=== PATIENT | male | born 1955 | race Caucasian/White ===

== ENCOUNTER 2019-01-18 11:42 | Inpatient (IN) | payer OTHER, SELFPAY ==
[2019-01-18] VITALS (11 sets, daily range): BP systolic 127–149; BP diastolic 65–75; PULSE 88–97; RESP 16–28; TEMP 37.1–38.2; O2SAT 87–96; BMI 23.7; BMI 23.0
--- NOTE | 2019-01-18 12:26 | RAD_ITS ---
STUDY: X-RAY CHEST REASON FOR EXAM: Male, 63 years old. Cough, fever and chest congestion. TECHNIQUE: PA and lateral views of the chest. COMPARISON: None. FINDINGS: Airspace disease in the left upper and left lower lobes. Minimal increased markings at the right lung base. Findings include with bilateral patchy pneumonia is worse on the left side. There is no demonstrated pleural abnormality. Normal size heart. Normal mediastinum and sophia. Normal visualized pulmonary arteries. Normal visualized aortic arch and descending thoracic aorta. Normal visualized thoracic spine. Normal visualized ribs, clavicles, and shoulders. There is no demonstrated abnormality of the visualized soft tissue structures of the upper abdomen. RAD/Chest PA and Lateral IMPRESSION: Bilateral patchy pneumonia is worse on the left side. Electronically Signed: Basim Mcqueen, at 12:55 EDT , Service support ,
--- NOTE | 2019-01-18 12:29 | ED.VISSUMM ---
- ER Visit Summary Date of Service: 01/18/19 Chief Complaint: Sinusitis, not improving, cough History of Present Illness: The patient is a 63 M who presents with a cough and sinus infection. He has had a sinus infection for 10 days. He saw his PCP who ordered him Augmentin 5 days ago but he is not getting any better. He feels worse now. His temperature is been fluctuating between 96 and 101 Fahrenheit. He has been also taking Claritin and Flonase along with the Augmentin. His cough is productive. He still has the nasal congestion. He feels weak and tired as well. Physical Examination: Vital signs reviewed. HEENT exam shows swollen turbinates and congestion bilaterally. He is a non-erythematous throat. Neck is supple. Heart is regular rate and rhythm without murmurs. Lungs have a wheeze in the left lower lung base. Abdomen soft and nontender. Extremity have no edema. Skin exam reveals no rashes. Neurologic exam normal. Test Results: CBC shows a normal white blood cell count. Sodium 135, glucose 110. Chest x-ray reveals bilateral infiltrates, left greater than right Emergency Department Course and Treatment: Patient is resting comfortably. He is 95% on room air. He has a normal white blood cell count is afebrile at this time. I feel he can be treated as an outpatient. I will give him doxycycline to take instead of the Augmentin. I will give an albuterol inhaler. He will need to call his PCP for follow-up Treatment Plan: [] Disposition: Discharge Impression: Community-acquired pneumonia, bilateral Sinusitis This note was generated with [employer] dictation software. It may contain incorrect words, spelling, and punctuation that were not noted in review of the chart prior to signing ED Disposition - Plan for ED Patient: Referrals: Comfort Walker MD [Primary Care Provider] -
[2019-01-18 12:42] LABS: Absolute Lymphocyte Count 0.93 X10^3/uL (0.83-4.51); Basophil# 0.01 X10^3/uL; Basophil% 0.1 % (0-1); Eosinophil# 0.05 X10^3/uL; Eosinophils% 0.6 % (0-5); Hematocrit 41.3 % (40-54); Hemoglobin 13.8 g/dL (13.0-16.5); Lymphocyte # 0.93 X10^3/ul (4.0); Lymphocyte % 10.6 % (19-41); Mean Corp Hgb Conc 33.4 g/dL (32-36); Mean Corpuscular Hgb 30.9 pg (27.0-32.0); Mean Corpuscular Volume 92.6 fL (80-94); Mean Platelet Vol. 9.4 fl (6.2-12.0); Monocyte# 0.71 X10^3/uL; Monocyte% 8.1 % (0-10); NRBC Flagged by Analyzer 0 % (0-5); Neutrophil # 7.03 X10^3/uL (2.7-7.7); Neutrophil % 80.3 % (47-70); Platelet Count 290 K/mm3 (150-450); RBC Distribution Width CV 12.1 % (11.6-14.6); Red Blood Count 4.46 M/mm3 (4.6-6.2); White Blood Count 8.8 K/mm3 (4.4-11.0)
[2019-01-18 12:50] LABS: Anion Gap 6 (5-15); BUN 11 mg/dL (7-18); BUN/Creat Ratio 13.4 RATIO (10-20); Calcium,Total 8.4 mg/dL (8.5-10.1); Chloride 100 mmol/L (98-107); Creatinine, Serum 0.82 mg/dL (0.70-1.30); EST Glomerular Filtration Rate 101 mL/min (>60); Est Glom Filt Rate - Afr Amer 122 mL/min (>60); Estimated Creatinine Clearance 99.48 ml/min; Glucose 110 mg/dL (74-106); Potassium 3.9 mmol/L (3.5-5.1); Sodium Level 135 mmol/L (136-145)
--- NOTE | 2019-01-18 13:26 | ED.DEP ---
ED Disposition - Plan for ED Patient: Disposition: Home or Assisted Living Instructions: PNEUMONIA (Adult) Prescriptions: Doxycycline 100 mg PO BID #20 cap Prescription Printed Albuterol Inhaler [Ventolin Hfa] 1 - 2 puff INHALATION Q4H PRN PRN #1 inhaler PRN Reason: Wheezing Prescription Printed Referrals: Comfort Walker MD [Primary Care Provider] -
[2019-01-18] MEDS: Albuterol 2.5 MG/3 ML VIAL.NEB. INHALATION (15:21)
--- NOTE | 2019-01-18 15:47 | NURSING ---
MED SURG CAP PAINTSIL
--- NOTE | 2019-01-18 16:01 | HP.PCM_ITS ---
Problem List (1) CAP (community acquired pneumonia) Status: Acute (2) Sinusitis Status: Acute Qualifiers: Chronicity: unspecified History of Present Illness Date of Admission: 01/18/19 Chief Complaint: Fever, cough - 5 days The patient is a 63 year old M with no significant past medical history who comes in with sinus infection ongoing for 10 days for which his primary care doctor prescribed Augmentin 5 days ago. Patient started having fever with cough about the same time as he started his Augmentin. His fevers were as high as 101.8F. His cough is productive of greenish sputum. He has nasal congestion, shortness of breath at rest and on exertion. He denied any dizziness or sore throat or chest pain or diarrhea or nausea or vomiting. His admitting vitals showed of 98.8F, heart rate 90, blood pressure 128/65, respiratory rate of 18, SPO2 was 94% on room air. His white cell count was 8.8, hemoglobin 13.8, platelet count 290, BMP was unremarkable except for sodium of 135. Chest x-ray on admission showed bilateral patchy pneumonia, worse on the left Past Medical History Allergies No Known Allergies Allergy (Verified 01/18/19 11:44) Home Medications: Ambulatory Orders Medication Instructions Recorded Amoxicillin/Potassium Clav 1 tab PO BID 01/18/19 [Amox-Clav 875-125 mg Tablet] Fluticasone 0.05% [Flonase Nasal 1 - 2 spray NASAL DAILY 01/18/19 [place]] Loratadine [Claritin] 10 mg PO DAILY 01/18/19 Lutein 20 mg PO DAILY 01/18/19 [place] Fruit [Saw [place]] 450 mg PO DAILY 01/18/19 Turmeric Root Extract [Turmeric] 500 mg PO DAILY 01/18/19 Surgical History: - - s/p cysts removal from his back Psychiatric History: No pertinent psych hx Lives: Spouse/ Significant Other Smoking Status: Never smoker Tobacco Use: Non-smoker Alcohol: None Drugs: None - *Family History Paternal History Items: Heart Disease - s/p pacemaker Maternal History Items: Cancer - Non-hodgkins lymphoma, dementia Review of Systems Constitutional: Reports: Chills, Fever, Malaise, Weakness, Fatigue. Denies: Anorexia, Night Sweats, Weight Change Eyes: Denies: Blurred vision, Cataracts, Conjunctivae Inflammation, Pain, Redness, Vision Change HEENT: Denies: Difficulty Hearing, Difficulty Swallowing, Head Aches, Hearing Changes, Nasal bleeding, Sinus Congestion, Sinus Drainage, Sore Throat Cardiovascular: Denies: Chest Pain, Claudication, Orthopnea, Palpitations, Paroxysmal Noc. Dyspnea Respiratory: Reports: Cough, Hemoptysis, Shortness of Breath, Shortness of gabo th at rest, Shortness of breath upon exertion, Sputum production - greeenish Gastrointestinal: Denies: Abdominal Pain, Hematemesis, Hematochezia, Nausea, Vomiting Genitourinary: Denies: Dysuria, Frequency, Incontinence, Nocturia, Retention Musculoskeletal: Denies: Joint Pain, Joint Tenderness Skin: Denies: Pruritis, Rash, Wounds Neurological: Denies: Difficulty swallowing, Focal weakness, Numbness, Tingling Psychiatric: Denies: Anxiety, Depression, Homicidal Ideations, Suicidal Ideations Endocrine: Denies: Change in Body Habitus, Heat/ Cold Intolerance Hematologic/ Lymphatic: Denies: Easy Bruising, Easy Bleeding VTE Information - Inpt Only VTE Present on Admission: No VTE Pharm Prophylaxis ordered?: Yes Patient Problems: Active and Suspected Problems CAP (community acquired pneumonia) (Acute) Sinusitis (Acute) - Physical Exam General: Alert, Oriented x3, Cooperative, - - in mild distress, on 2L oxygen HEENT: Atraumatic, PERRLA, EOMI, Normocephalic Oral: Moist Mucosa Neck: Supple Lungs: Diminished - worse on the left lower lobe Cardiovascular: Regular rate, Regular Rhythm, Normal S1, Normal S2, Tachycardic Abdomen: Bowel Sounds Present, Soft, Non Tender, Non-Distended, No Hepato- splenomegaly Extremities: No edema Skin: No rashes Musculoskeletal: No Tenderness to Palpation of Joints or Extremities Lymphatic: No Cervical, Supraclavicular, or Inguinal Adenopathy Neurological: Cranial nerves II-XII grossly intact, Neuro grossly intact Psych/Mental Status: Normal Affect, Appropriate Vital Signs Temp Pulse Resp BP Pulse Ox 100.2 F H 88 20 H 127/70 H 89 01/18/19 15:17 01/18/19 15:21 01/18/19 15:21 01/18/19 15:17 01/18/19 15:17 Oxygen Delivery Method Room Air Weight: 77.111 kg Body Mass Index (BMI) 23.7 Laboratory Tests Past 24 Hrs 01/18/19 01/18/19 12:25 12:25 WBC 8.8 RBC 4.46 L Hgb 13.8 Hct 41.3 MCV 92.6 MCH 30.9 MCHC 33.4 RDW Std Deviation 41.0 RDW Coeff of David 12.1 Plt Count 290 MPV 9.4 Immature Gran % (Auto) 0.300 Neut % (Auto) 80.3 H Lymph % (Auto) 10.6 L [place] % (Auto) 8.1 Eos % (Auto) 0.6 Baso % (Auto) 0.1 Absolute Neuts (auto) 7.0 Absolute Lymphs (auto) 0.93 Nucleated RBC % 0 Sodium 135 L Potassium 3.9 Chloride 100 Carbon Dioxide 29.0 Anion Gap 6 BUN 11 Creatinine 0.82 Estim Creat Clear Calc 99.48 Est GFR (MDRD) Af Amer 122 Est GFR (MDRD) Non-Af 101 BUN/Creatinine Ratio 13.4 Glucose 110 H Calcium 8.4 L Assessment/Plan All Active Problems CAP (community acquired pneumonia) (Acute) Sinusitis (Acute) 63 year old M with no significant past medical history who was recently diagnosed with a sinus infection ongoing for 10 days started on Augmentin 5 days ago but comes in with fever and cough of 5 days duration. 1. Acute respiratory insufficiency secondary to CAP, patient is not on oxygen at home, Currently on 2 L of oxygen Will continue on breathing treatments, encourage use of incentive spirometer, no for SPO2 more than 94% 2. CAP, likely secondary to suspected gram-positive organisms, recently been on Augmentin Started on IV Levaquin; will continue with such will rule out viral component with respiratory panel 3. Acute sinusitis, patient complains of recurrent symptoms, recently started on Augmentin but had persistent fever and cough Will get CT of the sinuses 3. Hyponatremia, likely related to dehydration, will continue on IVF, repeat blood work in am 4. DVT PPx - Heparin SC Code Visit Inpatient E&M: 67888 Init Hosp L2
[2019-01-18] MEDS: levoFLOXacin IV 750 MG/150 ML BAG 100 MG IV (16:26)
--- NOTE | 2019-01-18 16:50 | CT_ITS ---
STUDY: CT MAXILLOFACIAL SINUSES REASON FOR EXAM: Male, 63 years old. Sinusitis RADIATION DOSAGE (If Supplied By Facility): CTDIvol = ( 29.38 ) mGy, DLP = ( 437.27 ) mGycm TECHNIQUE: The patient was scanned in a multi detector CT scanner. High resolution axial imaging was performed without the administration of intravenous contrast material. Sagittal and coronal images were reconstructed. Individualized dose optimization techniques were used for this CT. COMPARISON: None. FINDINGS: FRONTAL SINUSES: Mild mucosal thickening. ETHMOIDAL SINUSES: Mild mucosal thickening. MAXILLARY SINUSES: Minimal mucosal thickening bilaterally. Possible small retention cyst in the right maxillary sinus. SPHENOIDAL SINUSES: Normal aeration, without mucosal inflammatory disease. There is patency of the bilateral maxillary infundibuli with normal uncinate processes, ethmoid bullae, and hiatus semilunaris. Normal bilateral middle turbinates. Normal bilateral inferior turbinates. Normal midline nasal septum. There is patency of the bilateral nasal airways. The visualized osseous structures are normal. The visualized bilateral orbital contents are normal. CT/Sinus/Facial Bone IMPRESSION: Mild paranasal sinus disease. Electronically Signed: Fredy Malik DO at 20:41 EDT Tel [phone], Service support ,
[2019-01-18] MEDS: 0.9% Normal Saline 1,000 ML 75 ML IV (18:32)
[2019-01-18 18:35] LABS: AST(SGOT) 32 U/L (15-37); Alanine Aminotransfer ALT/SGPT 29 U/L (16-61); Albumin, Serum 3.2 g/dL (3.2-5.0); Alkaline Phosphatase 48 U/L (45-117); Bilirubin, Direct 0.29 mg/dL (0.00-0.30); Globulin 3.9 g/dL (2.2-4.2); Protein, Total 7.1 g/dL (6.4-8.2)
[2019-01-18] MEDS: Acetaminophen 325 MG Tablet 650 MG PO (20:44)
[2019-01-18] MEDS: guaiFENesin 1,200 MG Tablet 1200 MG PO (21:50)
[2019-01-18] MEDS: Heparin Injection (Vial) 5,000 UNIT/ML VIAL 5000 UNIT SC (21:50)
[2019-01-19 02:06] VITALS: BP 125/65; PULSE 76; RESP 18; TEMP 36.8; O2SAT 94
[2019-01-19] MEDS: 0.9% Normal Saline 1,000 ML 75 ML IV (02:10)
[2019-01-19] MEDS: Heparin Injection (Vial) 5,000 UNIT/ML VIAL 5000 UNIT SC (05:34)
[2019-01-19 06:18] LABS: Basophil# 0.02 X10^3/uL; Basophil% 0.2 % (0-1); Eosinophil# 0.04 X10^3/uL; Eosinophils% 0.5 % (0-5); Hematocrit 40.2 % (40-54); Hemoglobin 13.5 g/dL (13.0-16.5); Lymphocyte % 11.4 % (19-41); Mean Corp Hgb Conc 33.6 g/dL (32-36); Mean Corpuscular Hgb 31.7 pg (27.0-32.0); Mean Corpuscular Volume 94.4 fL (80-94); Mean Platelet Vol. 9.6 fl (6.2-12.0); Monocyte# 0.67 X10^3/uL; Monocyte% 7.6 % (0-10); NRBC Flagged by Analyzer 0 % (0-5); Neutrophil # 6.99 X10^3/uL (2.7-7.7); Neutrophil % 79.6 % (47-70); Platelet Count 283 K/mm3 (150-450); RBC Distribution Width SD 42.1 fl (35.1-43.9); Red Blood Count 4.26 M/mm3 (4.6-6.2); White Blood Count 8.8 K/mm3 (4.4-11.0)
[2019-01-19 06:43] LABS: ALB/GLOB Ratio 0.7 RATIO (0.9-2.4); AST(SGOT) 28 U/L (15-37); Alanine Aminotransfer ALT/SGPT 27 U/L (16-61); Albumin, Serum 2.8 g/dL (3.2-5.0); Alkaline Phosphatase 45 U/L (45-117); Anion Gap 6 (5-15); BUN 10 mg/dL (7-18); BUN/Creat Ratio 12.3 RATIO (10-20); Chloride 105 mmol/L (98-107); Creatinine, Serum 0.82 mg/dL (0.70-1.30); EST Glomerular Filtration Rate 102 mL/min (>60); Est Glom Filt Rate - Afr Amer 123 mL/min (>60); Estimated Creatinine Clearance 96.44 ml/min; Globulin 3.8 g/dL (2.2-4.2); Glucose 110 mg/dL (74-106); Protein, Total 6.6 g/dL (6.4-8.2); Sodium Level 138 mmol/L (136-145)
--- NOTE | 2019-01-19 08:15 | DCINST_ITS ---
- Discharge Diagnoses Current Active Problems: Current Active and Chronic Problems CAP (community acquired pneumonia) (Acute) Sinusitis (Acute) You will use the following diet at home:: No restrictions Your food should be the consistency of: Regular Discharge Activity: Return to Normal Activity - ease back into routine., - - confer with primary care physician if you well enough to go to your conference in [place], [place]. Call your doctor if you observe: Fever of 101 or Higher, Shortness of breath Instructions: PNEUMONIA (Adult) Allergies/Adverse Reactions: Allergies No Known Allergies Allergy (Verified 01/18/19 11:44) Medications to take at Discharge Fluticasone 0.05% [Flonase Nasal [place]] 1 - 2 spray NASAL DAILY 01/18/19 Loratadine [Claritin] 10 mg PO DAILY 01/18/19 Lutein 20 mg PO DAILY 01/18/19 Saw [place] Fruit [Saw [place]] 450 mg PO DAILY 01/18/19 Turmeric Root Extract [Turmeric] 500 mg PO DAILY 01/18/19 Guaifenesin [Mucinex] 1,200 mg PO BID #14 tab 01/19/19 levoFLOXacin tablet [Levaquin tablet] 750 mg PO DAILY #6 tab 01/19/19 The following prescriptions were given: levoFLOXacin tablet [Levaquin tablet] 750 mg PO DAILY #6 tab Transmission Status: Pending to [facility] Guaifenesin [Mucinex] 1,200 mg PO BID #14 tab Transmission Status: Pending to [facility] Primary Care Physician: Comfort Walker MD [Primary Care Provider] - Within 1 Week Test Results: Test results from this visit will be discussed in further detail at your follow- up appointment, if applicable. Proposed Discharge Date: 01/19/19
--- NOTE | 2019-01-19 08:17 | DS.PCM_ITS ---
Discharge Date and Diagnosis - Problem List Patient Problems: Active and Suspected Problems Pneumococcal pneumonia (Acute) CAP (community acquired pneumonia) (Acute) Sinusitis (Acute) Date of Admission: 01/18/19 Date of Discharge: 01/19/19 - Primary Discharge Diagnosis Active and Suspected Problems CAP (community acquired pneumonia) (Acute) Sinusitis (Acute) Hospital Course and Treatment Imaging Results: Clinical Impression(s) from Imaging Studies Chest X-Ray 01/18/19 12:26 IMPRESSION: Bilateral patchy pneumonia is worse on the left side. Electronically Signed: Basim Mcqueen, at 12:55 EDT , Service support , Facial/Sinus 01/18/19 16:50 IMPRESSION: Mild paranasal sinus disease. Electronically Signed: Fredy Malik DO at 20:41 EDT Tel [phone], Service support , Operations: None Procedures: None Summary of Care Provided: The patient is a 63 year old Sarah Mendoza with 5 days of fever and a cough. Had been prescribed Augmentin as well as Flonase through his primary care physician but was still feeling sick having fevers as high as 101.8 Fahrenheit. Patient was having productive phlegm as well. Had a chest x-ray performed in the emergency room that showed a left lower lobe infiltrate. Patient was started on levofloxacin. Today, patient is feeling much better. Patient had a respiratory panel that was positive for rhinovirus and patient also had negative urinary antigens for Streptococcus and Legionella. Patient will be discharged with levofloxacin to complete a 7-day course of antibiotics plus patient will be prescribed Mucinex. Patient was asking about his sinusitis and I did advised him to use Flonase. Unbeknownst to me at that time, patient was already prescribed Flonase. Recommended that he continue with that for the next several weeks and if he does not have any improvement then to potentially see the ENT for an opinion. I explained the patient that any kind of surgical intervention for chronic sinusitis is complete last resort. Patient states that he is supposed to go to [facility] next week for conference. Patient if he is requiring oxygen then that would really need to be canceled but if not, I would recommend him follow-up with his primary care physician within the week to make sure that he is better enough so that he can go. Patient was admitted to but improved much faster than initially anticipated. [] Patient Problems: Active and Suspected Problems Pneumococcal pneumonia (Acute) CAP (community acquired pneumonia) (Acute) Sinusitis (Acute) - Physical Exam General: Alert, No apparent distress HEENT: Atraumatic, Normocephalic Oral: Moist Mucosa, No Gingival or Mucosal Lesions/ Ulcerations Neck: No Nodes, Thyroid Normal Size and Texture Lungs: Normal air movement, - - Crackles left lower lobe Cardiovascular: Regular rate, Regular Rhythm, Normal S1, Normal S2 Abdomen: Bowel Sounds Present, Soft, Non Tender, Non-Distended Extremities: No edema, No Calf Tenderness Psych/Mental Status: Normal Affect, Appropriate Vital Signs Temp Pulse Resp BP Pulse Ox 36.8 C 76 18 125/65 H 94 01/19/19 02:06 01/19/19 02:06 01/19/19 02:06 01/19/19 02:06 01/19/19 02:06 Oxygen Flow Rate (L/min) 2 Oxygen Delivery Method Nasal Cannula Weight: 74.5 kg Body Mass Index (BMI) 23.0 Intake and Output for Last 24 Hours 01/17/19 01/18/19 01/19/19 23:59 23:59 23:59 Intake Total 150 / 1350 2572.5 / 2572.5 Balance 150 / 1350 2572.5 / 2572.5 Microbiology Past 72 Hours 01/18/19 17:10 Respiratory Panel (PCR) - Final Mucosa - Nose Rhinovirus 01/18/19 20:30 Streptococcus pneumoniae Antigen (M - Final Urine, Clean Catch 01/18/19 20:30 Legionella Antigen - Final Urine, Clean Catch Laboratory Tests Past 24 Hrs 01/18/19 01/18/19 01/18/19 12:25 12:25 12:25 WBC 8.8 RBC 4.46 L Hgb 13.8 Hct 41.3 MCV 92.6 MCH 30.9 MCHC 33.4 RDW Std Deviation 41.0 RDW Coeff of David 12.1 Plt Count 290 MPV 9.4 Immature Gran % (Auto) 0.300 Neut % (Auto) 80.3 H Lymph % (Auto) 10.6 L [place] % (Auto) 8.1 Eos % (Auto) 0.6 Baso % (Auto) 0.1 Absolute Neuts (auto) 7.0 Absolute Lymphs (auto) 0.93 Nucleated RBC % 0 Sodium 135 L Potassium 3.9 Chloride 100 Carbon Dioxide 29.0 Anion Gap 6 BUN 11 Creatinine 0.82 Estim Creat Clear Calc 99.48 Est GFR (MDRD) Af Amer 122 Est GFR (MDRD) Non-Af 101 BUN/Creatinine Ratio 13.4 Glucose 110 H Calcium 8.4 L Total Bilirubin 1.30 H Direct Bilirubin 0.29 AST 32 ALT 29 Alkaline Phosphatase 48 Total Protein 7.1 Albumin 3.2 Globulin 3.9 Albumin/Globulin Ratio 01/19/19 01/19/19 05:54 05:54 WBC 8.8 RBC 4.26 L Hgb 13.5 Hct 40.2 MCV 94.4 H MCH 31.7 MCHC 33.6 RDW Std Deviation 42.1 RDW Coeff of David 12.0 Plt Count 283 MPV 9.6 Immature Gran % (Auto) 0.700 Neut % (Auto) 79.6 H Lymph % (Auto) 11.4 L [place] % (Auto) 7.6 Eos % (Auto) 0.5 Baso % (Auto) 0.2 Absolute Neuts (auto) 7.0 Absolute Lymphs (auto) 1.00 Nucleated RBC % 0 Sodium 138 Potassium 4.0 Chloride 105 Carbon Dioxide 27.0 Anion Gap 6 BUN 10 Creatinine 0.82 Estim Creat Clear Calc 96.44 Est GFR (MDRD) Af Amer 123 Est GFR (MDRD) Non-Af 102 BUN/Creatinine Ratio 12.3 Glucose 110 H Calcium 8.0 L Total Bilirubin 1.30 H Direct Bilirubin AST 28 ALT 27 Alkaline Phosphatase 45 Total Protein 6.6 Albumin 2.8 L Globulin 3.8 Albumin/Globulin Ratio 0.7 L Discharge Diet: No Restrictions Discharge Activity: Return to Normal Activity - ease back into routine., - - confer with primary care physician if you well enough to go to your conference in [place]. Call your doctor if you observe: Fever of 101 or Higher, Shortness of breath Home Medications: Medications to take at Discharge Fluticasone 0.05% [Flonase Nasal [place]] 1 - 2 spray NASAL DAILY 01/18/19 Loratadine [Claritin] 10 mg PO DAILY 01/18/19 Lutein 20 mg PO DAILY 01/18/19 [place] Fruit [Saw [place]] 450 mg PO DAILY 01/18/19 Turmeric Root Extract [Turmeric] 500 mg PO DAILY 01/18/19 Guaifenesin [Mucinex] 1,200 mg PO BID #14 tab 01/19/19 levoFLOXacin tablet [Levaquin tablet] 750 mg PO DAILY #6 tab 01/19/19 Following Prescrptions Were Given to Patient: levoFLOXacin tablet [Levaquin tablet] 750 mg PO DAILY #6 tab Transmission Status: Pending to [facility] Guaifenesin [Mucinex] 1,200 mg PO BID #14 tab Transmission Status: Pending to [facility] Primary Care Physician: Comfort Walker MD [Primary Care Provider] - Within 1 Week Patient Instructions: PNEUMONIA (Adult) Disposition: Home Minutes spent on discharge:: 32 Patient Condition:: Good Medical Necessity - Tobacco Use Smoking Status: Never smoker Tobacco Use: Non-smoker Meaningful Use Info Meaningful Use Diagnoses (Choose all that apply): None applicable Code Visit Inpatient E&M: 30702 Disch Hosp
[2019-01-19 09:04] VITALS: O2SAT 94
[2019-01-19 09:30] VITALS: BP 120/65; PULSE 80; RESP 18; TEMP 37.7; O2SAT 93
[2019-01-19] MEDS: guaiFENesin 1,200 MG Tablet 1200 MG PO (09:39)
[2019-01-19] MEDS: Loratadine 10 MG Tablet PO (09:39)
[2019-01-19 09:44] VITALS: O2SAT 87
[2019-01-19 09:59] VITALS: O2SAT 86; O2SAT 92
--- NOTE | 2019-01-19 10:15 | CASEMGMT ---
SUE ANDERS Face to Face with patient for initial transition planning/care coordination assessment. SUE ANDERS introduced self and role at [facility]. Patient lying in bed, alert and oriented. Patient willing to participate in assessment and is able to answer all questions appropriately. Care providers, pharmacy, and demographics verified. Patient wishes to discharge home, denies need for home health at this time. Patient states he has no further needs or concerns at this time. CM to follow for discharge planning needs that may arise. PCP: Denise Specialists: None Preferred Pharmacy: [facility] Insurance: MMO Prescription Benefit: yes Living Will/HPOA: not sure LNOK: Living Arrangements: Patient lives with in 2 story home. Patient independent and can ambulate stairs. Transportation: self/ DME/HHC: Paitent denies any DME at home. SUE ANDERS updated that patient will require home oxygen at discharge. SUE ANDERS updated patient and provided list of DME companies in-network with insurance. Patient requesting [employer] for home oxygen. SUE ANDERS updated hospitalist and received script. SUE ANDERS faxed referral to [employer] and arranged for portable oxygen to be delivered to patient's room prior to discharge. Disposition Plan: Patient to discharge with home oxygen, family support, and follow-up plans in place. Annemarie BROWN, RN, CM
[2019-01-19] MEDS: levoFLOXacin IV 750 MG/150 ML BAG 100 MG IV (10:57)
[2019-01-19 13:30] VITALS: BP 123/74; PULSE 78; RESP 16; TEMP 36.7; O2SAT 94
== END 2019-01-19 13:30 | disposition home or self-care (01) | DRG 194 ==
LOC: ED 13:26 → MS3 16:11
PROVIDERS: Admitting Provider Internal Medicine; Emergency Provider Emergency Medicine; Family Provider Internal Medicine; PCP Internal Medicine
DX: J13 Pneumonia due to Streptococcus pneumoniae (principal); E87.1 Hypo-osmolality and hyponatremia; R06.89 Other abnormalities of breathing; E86.0 Dehydration; J01.90 Acute sinusitis, unspecified; B97.89 Other viral agents as the cause of diseases classified elsewhere; Z79.899 Other long term (current) drug therapy
CPT/HCPCS: 36415; 70486; 71046; 80048; 80053; 80076; 85025; 87070; 87205; 87449; 87633; 94640; 99251; 99281; J7030; A4216; G0463